=== PATIENT | female | born 1935 | race Caucasian/White ===

== ENCOUNTER → 2016-06-15 | Outpatient (CLI) | payer MEDICARE, OTHER | END | disposition home or self-care (01) | LOC: GMAB 17:02 | PROVIDERS: ATTEND Family Medicine | DX: G44.209 Tension-type headache, unspecified, not intractable (principal) ==

== ENCOUNTER 2016-09-05 14:45 | Emergency (ER) | payer MEDICARE, OTHER ==
--- NOTE | 2016-09-05 15:35 | RAD ---
EXAM DESCRIPTION: Chest,2 Views CLINICAL HISTORY: chest pain COMPARISON: None Available. TECHNIQUE: PA/lateral FINDINGS: Cardiomediastinal silhouette and pulmonary vascularity are within normal limits. Atherosclerotic calcification and mild tortuosity noted of the thoracic aorta. There are few tiny subcentimeter calcified nodules within the bilateral lungs, likely calcified granulomas. Otherwise, lungs are clear without focal consolidations. Bilateral costophrenic angles are sharp. No pneumothorax. Mild degenerative changes of the thoracic spine with marginal endplate spurring. IMPRESSION: 1. No radiographic evidence for acute cardiopulmonary process. 2. Other findings as above. Electronically signed by: Patrick Cuellar MD 09/05/2016 3:34 PM CDT
--- NOTE | 2016-09-05 16:21 | ED.PDOC ---
History of Present Illness - General Chief Complaint: Neuro Symptoms/Deficits Stated Complaint: right hand numbness and tingling Time Seen by Provider: 09/05/16 14:46 Source: patient Exam Limitations: no limitations - History of Present Illness Initial Comments: The patient is an 81-year-old female presenting to the emergency room secondary to nonspecific symptoms. The patient had approximately a minute of point pain over the upper pectoralis muscle on the left early this morning. An hour or 2 later she had some tingling in her right hand after she wasusing scissors to cut something for a while. She is not having any weakness. No difficulty with speech or swallowing. No recurrence of chest pain. 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 No pain with exertion. No syncope or near syncope. Upon reflection she has had some numbness of her hand before. Timing/Duration: 4-6 hours Severity: mild Improving Factors: nothing Worsening Factors: nothing Associated Symptoms: chest pain Allergies/Adverse Reactions: Allergies NO KNOWN ALLERGY Allergy (Verified 09/05/16 14:59) Review of Systems - Review of Systems Constitutional: States: no symptoms reported EENTM: States: no symptoms reported Respiratory: States: no symptoms reported Cardiology: States: chest pain Gastrointestinal/Abdominal: States: no symptoms reported Genitourinary: States: no symptoms reported Musculoskeletal: States: no symptoms reported, see HPI Skin: States: no symptoms reported Neurological: States: see HPI Endocrine: States: no symptoms reported All other Systems: No Change from Baseline Past Medical History (General) - Patient Medical History Hx Hypertension: Yes Surgical History: no surgical history - Vaccination History Hx Influenza Vaccination: Yes Hx Pneumococcal Vaccination: Yes - Social History Hx Tobacco Use: No Hx Alcohol Use: No Hx Substance Use: No Hx Substance Use Treatment: No Hx Depression: No - Activities of Daily Living Hospice Agency (if applicable):: None - Female History Patient is a Female of Child Bearing Age (10 -59 yrs old): No Patient : No Family Medical History - Family History Mother Family History: Unknown Physical Exam - Physical Exam General Appearance: Alert, Comfortable, No apparent distress Eye Exam: bilateral normal Ears, Nose, Throat: hearing grossly normal, normal ENT inspection, normal pharynx Neck: non-tender, full range of motion, supple Respiratory: chest non-tender, lungs clear, normal breath sounds, no respiratory distress, no accessory muscle use Cardiovascular/Chest: normal peripheral pulses, regular rate, rhythm, no edema Peripheral Pulses: radial,right: 2+, radial,left: 2+, dorsalis pedis,right: 2+, dorsalis pedis,left: 2+, posterior tibialis,right: 2+, posterior tibialis,left: 2+ Gastrointestinal/Abdominal: non tender, soft Rectal Exam: deferred Back Exam: normal inspection, no CVA tenderness, no vertebral tenderness Extremity: normal range of motion, non-tender, normal inspection, no pedal edema , normal capillary refill 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 She is also having some right hand neurological symptoms that appear to be most consistent with carpal tunnel syndrome. She can take over-the -counter anti-inflammatories. She can also use a wrist brace at night to prevent bending which may help. She should follow-up with her primary care doctor later this week. Lab work and x-ray as well as EKG are reassuring. eR warnings were given. - Results/Orders Results/Orders: Laboratory Tests 09/05/16 09/05/16 15:10 15:10 PT 10.7 INR 0.950 PTT (SP) 30.3 Sodium 142 Potassium 4.0 Chloride 109 Carbon Dioxide 22 Anion Gap 15.0 BUN 20 H Creatinine 0.67 BUN/Creatinine Ratio 29.9 H Random Glucose 107 H Serum Osmolality 286.2 Calcium 9.0 Magnesium 2.1 Total Bilirubin 0.6 AST 31 ALT 21 Alkaline Phosphatase 72 Creatine Kinase 81 CK-MB (CK-2) 2.2 CK-MB (CK-2) % Not Reportable Troponin I < 0.02 B-Natriuretic Peptide 42.9 Serum Total Protein 6.6 Albumin 4.0 Globulin 2.6 Albumin/Globulin Ratio 1.5 White blood cell count 4800. Hemoglobin and hematocrit are 11 and 36 respectively. Platelets are 318. EKG shows normal sinus rhythm with occasional PACs. No acute ST segment changes concerning for ischemia. Normal QTC length. Chest x-ray shows no evidence of acute pathology. Departure - Departure Clinical Impression: Carpal tunnel syndrome of right wrist Pectoralis muscle strain Qualifiers: Encounter type: initial encounter Qualified Code(s): S29.011A - Strain of muscle and tendon of front wall of thorax, initial encounter Disposition: Discharge to Home or Self Care Condition: Fair Departure Forms: ED Discharge - Pt. Copy, Patient Portal Self Enrollment Instructions: DI for Carpal Tunnel Syndrome, DI for Muscle Strain Diet: regular diet Activity: increase activity as tolerated Referrals: Broderick Ko MD [Primary Care Provider] - 1-5 Days Additional Instructions: the patient is an 81-year-old female presenting to the emergency room secondary to brief chest pain that is most likely muscular from pectoralis irritation. She is also having some right hand neurological symptoms that appear to be most consistent with carpal tunnel syndrome. She can take over-the -counter anti-inflammatories. She can also use a wrist brace at night to prevent bending which may help. She should follow-up with her primary care doctor later this week. Lab work and x-ray as well as EKG are reassuring. eR warnings were given.
[2016-09-05 16:45] VITALS: BP 129/59; TEMP 98; O2SAT 98
== END 2016-09-05 16:45 | disposition home or self-care (01) ==
LOC: ER 14:45
DX: G56.01 Carpal tunnel syndrome, right upper limb (principal); S29.011A Strain of muscle and tendon of front wall of thorax, initial encounter; I10 Essential (primary) hypertension; X58.XXXA Exposure to other specified factors, initial encounter; Y92.9 Unspecified place or not applicable

== ENCOUNTER → 2017-02-02 | Outpatient (CLI) | payer MEDICARE, OTHER | END | disposition home or self-care (01) | LOC: GMAB 10:22 | PROVIDERS: ATTEND Family Medicine | DX: I10 Essential (primary) hypertension (principal); R94.6 Abnormal results of thyroid function studies ==

== ENCOUNTER → 2017-05-08 | Outpatient (CLI) | payer MEDICARE, OTHER | LOC: GMAL 11:30 | PROVIDERS: ATTEND Family Medicine | DX: R94.6 Abnormal results of thyroid function studies (principal) ==

== ENCOUNTER → 2017-06-06 | Outpatient (CLI) | payer MEDICARE, OTHER ==
--- NOTE | 2017-06-07 11:07 | US ---
EXAM DESCRIPTION: Carotid Duplex CLINICAL HISTORY: OCCLUSIVE DISEASE COMPARISON: None Available. TECHNIQUE: Carotid Doppler ultrasound FINDINGS: Right Submitted images show tortuosity of the right common carotid artery with calcified plaque in the right carotid bulb and proximal right ICA. In the proximal right ECA, transverse image shows area diameter stenosis of 49%. The following flow velocities were obtained: Common carotid artery peak systolic flow velocity is measured at 57 cm/s. Internal carotid artery peak systolic flow velocity measures 80 cm/s. The right internal carotid to common carotid peak systolic flow velocity ratio of 1.4 is normal. External carotid artery peak systolic flow velocity measures 51 cm/s. Flow in the right vertebral artery is antegrade. Left Submitted images show tortuous left common carotid artery with widely patent left carotid bulb suggesting previous endarterectomy. Widely patent origins of left internal and external carotid arteries. There is soft plaque in the upper left CCA. Mild calcified plaque in the proximal left ICA. The following flow velocities were obtained: Common carotid artery peak systolic flow velocity measures 59 cm/s. Internal carotid artery peak systolic flow velocity measures 89 cm/s. The left internal carotid to common carotid peak systolic flow velocity ratio of 1.5 is normal. External carotid artery peak systolic flow velocity measures 55.4 cm/s. Flow in the left vertebral artery is antegrade. IMPRESSION: Calcified plaque at the right carotid bifurcation with 49% area narrowing of the proximal right ICA. Findings consistent with previous left carotid endarterectomy. No significantly elevated flow velocities to suggest hemodynamically significant stenosis. Antegrade flow in the vertebral arteries. Electronically signed by: Elmer Jaeger MD 06/07/2017 11:05 AM CDT
== END ==
LOC: US 13:47
PROVIDERS: ATTEND Internal Medicine Interventional Cardiology
DX: I65.23 Occlusion and stenosis of bilateral carotid arteries (principal)

== ENCOUNTER → 2018-05-01 | Outpatient (CLI) | payer MEDICARE, OTHER | LOC: GMAE 10:57 | PROVIDERS: ATTEND Family Medicine | DX: I10 Essential (primary) hypertension (principal) ==

== ENCOUNTER → 2018-11-26 | Outpatient (CLI) | payer MEDICARE, OTHER | LOC: GMAE 10:47 | PROVIDERS: ATTEND Family Medicine | DX: R94.6 Abnormal results of thyroid function studies (principal) ==

== ENCOUNTER → 2019-02-25 | Outpatient (CLI) | payer MEDICARE, OTHER | LOC: GMAE 14:21 | PROVIDERS: ATTEND Family Medicine | DX: R94.6 Abnormal results of thyroid function studies (principal) ==